=== PATIENT | male | born 1970 | race African-American/Black ===

== ENCOUNTER 2016-12-13 13:20 | Emergency (ER) | payer SELFPAY ==
[~2016-12-13] VITALS: Ht 172.7 cm; Wt 90.0 kg
[2016-12-13 13:21] VITALS: BP 139/82; PULSE 79; RESP 14; TEMP 97.8; O2SAT 99
--- NOTE | 2016-12-13 13:39 | PD ---
HPI . headache x 3 days Chief Complaint: Headache Time Seen by Provider: 13:39 Travel History International Travel<30 days: No Contact w/Intl Traveler<30days: No Traveled to known affect area: No History of Present Illness HPI 46-year-old male with no significant past medical history here with complaints of headache for 3 days. Patient says the headache is intermittent. He uses Aleve and it will take headache away, but then the headache returns. He says this is the second time he has had this type of headache and come to the emergency department and not much has been done about it. He reports not having a primary care provider and was not certain that this is something that his primary care provider should follow. He denies any fever, chills, chest pain, nausea, vomiting, abdominal pain, shortness breath, numbness, tingling, vision changes or other neuro deficits. He denies any trauma. This is not a severe headache for him. PFSH Past Medical History Asthma: No Autoimmune Disease: No Blood Disorders: No Anxiety: No Depression: Yes Heart Rhythm Problems: Yes (MURMUR ) Cancer: No Cardiac Catheterization: No Cardiovascular Problems: Yes (HEART MURMUR ASD A CHILD PER PT) High Cholesterol: No Congestive Heart Failure: No COPD: No Diabetes: No Diminished Hearing: No Endocrine: No GERD: No Genitourinary: No Hiatal Hernia: No Immune Disorder: No Musculoskeletal: No Neurologic: No Psychiatric: Yes Reproductive: No Respiratory: No Immunizations Current: Yes Schizophrenia: Yes (has not taken lithium and seroquel x oct 04, last act appt jul 2007) Thyroid Disease: No Ulcer: No Past Surgical History Abdominal Surgery: No AICD: No Arteriovenous Shunt: No Cardiac Surgery: No Coronary Artery Bypass Graft: No Ear Surgery: No Endocrine Surgery: No Eye Surgery: No Genitourinary Surgery: No Insulin Pump: No Joint Replacement: No Oral Surgery: No Pacemaker: No Thoracic Surgery: No Other Surgery: Yes (LEFT FOOT SURGERY PER PT) Social History Alcohol Use: Yes (OCCASIONAL) Tobacco Use: Yes Substance Use: Yes (CRACK, COCAINE,BLANCA ) Allergies-Medications (Allergen,Severity, Reaction): Coded Allergies: Tylenol (Verified Allergy, Mild, PT STS DOES NOT TAKE TYLENOL SINCE TYLENOL WITH CODEINE RASH, 02/21/16) Tylenol #3 (Verified Allergy, Mild, RASH, 02/21/16) Reported Meds & Prescriptions Reported Meds & Active Scripts Active No Active Prescriptions or Reported Medications Review of Systems General / Constitutional: No: Fever Eyes: No: Visual changes HENT: Positive: Headaches Cardiovascular: No: Chest Pain or Discomfort Respiratory: No: Shortness of Breath Gastrointestinal: No: Abdominal Pain Genitourinary: No: Dysuria Musculoskeletal: No: Pain Skin: No Rash Neurologic: No: Weakness Psychiatric: No: Depression Endocrine: No: Polydipsia Hematologic/Lymphatic: No: Easy Bruising Physical Exam Narrative GENERAL: AAO x 3, no acute distress, Well-nourished, well-developed patient. Comfortable, laughing and giggling on his cell phone. SKIN: Warm and dry. No visible rashes or bruising. HEAD: Normocephalic and atraumatic. EYES: No scleral icterus. No injection or drainage. EOM intact, PERRLA. ENT: No nasal drainage noted. Mucous membranes pink. Airway patent. TM normal b/ l. mild cerumen, NECK: Supple, trachea midline. No JVD. CARDIOVASCULAR: Regular rate and rhythm without murmurs, gallops, or rubs. RESPIRATORY: Breath sounds equal bilaterally. No accessory muscle use. No rhonchi or rales. GASTROINTESTINAL: Abdomen soft, non-tender, nondistended. EXTREMITIES: No cyanosis or edema. NEURO: NO DEFICITS: CN 2-12 intact, image editor strength normal b/l. UE and LE strength normal b/l. finger to nose: normal/ BACK: Nontender without obvious deformity. No CVA tenderness. PSYCH: AAO x 3, normal affect. Data Data Last Documented VS Vital Signs Date Time Temp Pulse Resp B/P Pulse Ox O2 Delivery O2 Flow Rate FiO2 12/13/16 13:21 97.8 79 14 139/82 99 MDM Medical Decision Making Medical Screen Exam Complete: Yes Emergency Medical Condition: No Medical Record Reviewed: Yes Differential Diagnosis sinus headache, migraines, less likely CVA or SAD Narrative Course 46-year-old male with no significant past medical history here with complaints of headache for 3 days. Patient says the headache is intermittent. He uses Aleve and it will take headache away, but then the headache returns. He says this is the second time he has had this type of headache and come to the emergency department and not much has been done about it. He reports not having a primary care provider and was not certain that this is something that his primary care provider should follow. He denies any fever, chills, chest pain, nausea, vomiting, abdominal pain, shortness breath, numbness, tingling, vision changes or other neuro deficits. He denies any trauma. Explained to pt that this is something his PCP will need to follow and workup. A medical screening exam was performed: At the time of evaluation the presenting medical condition was determined not to be of an emergent nature. The patient was given the option of receiving additional care, but declined. Patient was given options for additional community resources from which to obtain care. The Patient Has Been advised to seek medical attention for their presenting complaint. The patient has been advised to return to the ER at any time if an emergent condition develops. Diagnosis Primary Impression: Encounter for medical screening examination Scripts No Active Prescriptions or Reported Meds Condition: Stable Zayda Knutson Dec 13, 2016 13:39
== END 2016-12-13 13:49 | disposition left against medical advice (07) ==
LOC: NEPB 13:20
DX: R51 Headache (principal)
CPT/HCPCS: 99281